=== PATIENT | female | born 1930 | race Caucasian/White ===

== ENCOUNTER → 2016-06-11 | Outpatient (CLI) | payer MEDICARE ==
[~2016-06-11] MED LIST: ASPI-504 PO; CALC-701 PO; HYDR-3702 PO; LETR2.5T5 PO; OMG1KC PO; SERT100T PO; ZOLP5TAB PO
[2016-06-11 14:45] LABS: MEAN CORPUSCULAR HEMOGLOBIN 30.7 PG (26.0-34.0); MEAN CORPUSCULAR HGB CONC 33.7 g/dL (31.0-37.0); MEAN CORPUSCULAR VOLUME 91 FL (80-100); PLATELET COUNT 150 10^3uL (150-450); WHITE BLOOD COUNT 7.41 10^3uL (4.0-11.0)
[2016-06-11 15:09] LABS: ANION GAP 15.7 MEQ/L (3-15); CALCULATED IONIZED CALCIUM 4.4 mg/dL (3.8-4.6); MAGNESIUM* 2.1 mg/dL (1.6-2.3); PHOSPHORUS 3.8 mg/dL (2.4-4.9); TOTAL PROTEIN 7.2 g/dL (6.4-8.5)
[2016-06-11 15:13] LABS: BAND NEUTROPHILS % 0 % (0-6); EOSINOPHILS % 4 % (0-4); LYMPHOCYTES # 1.8 #; MONOCYTES # 0.2 #; MONOCYTES % 3 % (3-11); RBC MORPH NORMAL (NORMAL); SEGMENTED NEUTROPHILS % 69 % (51-67); TOTAL CELLS COUNTED 100
== END ==
LOC: LAB 14:27
PROVIDERS: ATTEND Internal Medicine Hematology & Oncology
DX: C50.412 Malignant neoplasm of upper-outer quadrant of left female breast (principal)
CPT/HCPCS: 36415; 80053; 83615; 83735; 84100; 85007; 85027; 86300

== ENCOUNTER 2016-07-19 15:45 | Outpatient (RCR) | payer MEDICARE | END 2016-08-03 16:14 | disposition home or self-care (01) | LOC: PT 15:45 | PROVIDERS: ATTEND Family Medicine | DX: M25.561 Pain in right knee (principal); M17.11 Unilateral primary osteoarthritis, right knee; M25.511 Pain in right shoulder | CPT/HCPCS: 97110; 97112; 97116; 97140; 97162; G8978; G8979; G8980 ==

== ENCOUNTER → 2016-08-27 | Outpatient (CLI) | payer MEDICARE ==
[2016-08-27 15:09] LABS: MEAN CORPUSCULAR HGB CONC 32.9 g/dL (31.0-37.0); MEAN CORPUSCULAR VOLUME 91 FL (80-100); MEAN PLATELET VOLUME 10.1 FL (6.0-9.5); PLATELET COUNT 116 10^3uL (150-450); WHITE BLOOD COUNT 5.53 10^3uL (4.0-11.0)
[2016-08-27 15:24] LABS: BAND NEUTROPHILS % 0 % (0-6); LYMPHOCYTES # 2.2 #; SEGMENTED NEUTROPHILS % 52 % (51-67)
[2016-08-27 15:25] LABS: EOSINOPHILS % 0 % (0-4); MONOCYTES # 0.5 #; MONOCYTES % 9 % (3-11); RBC MORPH NORMAL (NORMAL); TOTAL CELLS COUNTED 100
[2016-08-27 15:37] LABS: ALBUMIN 4.1 g/dL (3.4-5.0); ANION GAP 12.7 MEQ/L (3-15); CALCULATED IONIZED CALCIUM 4.4 mg/dL (3.8-4.6); MAGNESIUM* 1.9 mg/dL (1.6-2.3); PHOSPHORUS 3.9 mg/dL (2.4-4.9); TOTAL PROTEIN 6.9 g/dL (6.4-8.5)
== END ==
LOC: LAB 14:56
PROVIDERS: ATTEND Internal Medicine Hematology & Oncology
DX: C50.412 Malignant neoplasm of upper-outer quadrant of left female breast (principal)
CPT/HCPCS: 36415; 80053; 83615; 83735; 84100; 85007; 85027; 86300

== ENCOUNTER → 2016-08-30 | Outpatient (CLI) | payer MEDICARE ==
--- NOTE | 2016-08-30 11:05 | Diagnostic Imaging Report ---
PROCEDURE: CT chest pelvis with and abdomen with and without contrast. TECHNIQUE: Multiple contiguous axial images were obtained through the chest, abdomen and pelvis after uneventful bolus administration of intravenous contrast. Precontrast acquisitions were acquired through the abdomen. INDICATION: Breast cancer. COMPARISON: 08/12/2015 Chest: Left breast nodule laterally measures 1.5 cm today previously 2 cm. No pathological appearing axillary lymph nodes. No abnormal tissue along the internal mammary chains. Some mild basilar atelectasis with no dominant or suspicious lung mass or pulmonary nodule. There is no hilar or mediastinal lymphadenopathy. Some tortuosity of the great vessels with no mediastinal mass. No pleural or pericardial effusion. There is coronary arterial atherosclerosis. There is no thoracic effusion or pneumothorax. Sclerotic lesion in the left sixth rib anterolaterally is a new finding. No other rib abnormality. There are degenerative changes to the thoracic endplates not grossly changed. Sclerosis in the left T12 pedicle and its right vertebral body is a new finding. There is new sclerosis in the right 10th thoracic transverse process. The development of bony metastatic disease is suspected and bone scanning may be of benefit. 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 No new or suspicious liver mass. Simple left renal cortical cyst is stable. The adrenals are negative. Spleen is negative. The pancreas is negative. There is no abdominal mesenteric or retroperitoneal lymphadenopathy. No abnormal adenopathy or soft tissue mass within the pelvis is found. New sclerotic bone disease in the pelvis is present. Conspicuous lesions involve the left acetabulum and supra-acetabulum, the bilateral innominate bone is lateral to the SI joints. Multiple lumbar vertebral bodies. There is also subtle sclerotic foci in the femoral neck on the left with some soft tissue calcifications and irregularity at the greater tuberosity posteriorly. IMPRESSION: 1. 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 2. We again showed no findings suggestive of soft tissue metastasis within the chest, abdomen or pelvis. Dictated by: Dictated on workstation # [id number]
== END ==
LOC: RAD 07:51
PROVIDERS: ATTEND Internal Medicine Hematology & Oncology
DX: C50.412 Malignant neoplasm of upper-outer quadrant of left female breast (principal); Z78.0 Asymptomatic menopausal state
CPT/HCPCS: 71260; 74178; Q9967

== ENCOUNTER → 2016-08-31 | Outpatient (CLI) | payer MEDICARE ==
--- NOTE | 2016-08-31 14:48 | Diagnostic Imaging Report ---
INDICATION: History of breast carcinoma. Complaining of arthritis pain, especially in the hips. Fell in May 2016. EXAMINATION: Bone scan on 08/31/2016. TECHNIQUE: After the uneventful administration of 26.2 mCi of technetium 99m MDP intravenously, subsequent imaging was performed in frontal and posterior projections of the whole body. FINDINGS: There are several foci of increased uptake noted within multiple left anterior ribs, similar to the previous examination. Posteriorly, several areas of increased uptake corresponding to the lower thoracic/upper lumbar spine are also unchanged. Uptake in the right frontoparietal calvarium is stable. There may be a small focus of increased uptake in the left parietal region towards the vertex which was not definitely seen previously. There is a new focus of increased uptake corresponding to the left hip region. This is seen predominantly within the intertrochanteric aspect of the proximal left femur, not seen on previous imaging. Given the history of prior fall, this could be due to contusion or fracture. Correlation is made to a CT of the abdomen and pelvis dated 08/30/2016. The irregularity noted within the left proximal femur likely corresponds to the areas of increased uptake seen on today's bone scan. Multiple osseous lesions described on the recent CT are not as well appreciated on the bone scan but likely too small for visualization at this time. See the separate CT report. There are several foci of increased uptake in the posterior gwen bilaterally. IMPRESSION: 1. New focus of increased uptake noted in the left intertrochanteric region corresponding with the abnormality seen on the recent CT and consistent with a fracture. 2. Questionable new focus of uptake in the left parietal calvarium towards the vertex with multiple other areas of increased uptake throughout the skeleton as described above, consistent with metastatic disease. 3. The report was called/faxed to nurse Michelle at the office of Dr. Walker Corado by jason@2:55 PM. Dictated by: Dictated on workstation # [id number]
== END ==
LOC: RAD 08:15
PROVIDERS: ATTEND Internal Medicine Hematology & Oncology
DX: Z78.0 Asymptomatic menopausal state (principal); C50.412 Malignant neoplasm of upper-outer quadrant of left female breast
CPT/HCPCS: 78306; A9503

== ENCOUNTER 2016-10-02 08:15 | Outpatient (RCR) | payer MEDICARE ==
--- NOTE | 2016-09-20 12:33 | PT/OT/ST INITIAL EVALUATION ---
Department of Health and Human Services Form Approved [facility] Care Financing Administration OMB No. [id number] PLAN OF CARE/ASSESSMENT FOR OUTPATIENT REHABILITATION (Complete for Initial Claims Only) 1. PATIENT'S NAME Lory Gillespie 2. ACC # [id number] 3. HICN [id number] 4. PROVIDER NO. [id number] 5. TYPE: PT 6. PRIOR HOSPITALIZATION NA 7. PRIMARY DX Healed left trochanteric fracture and left SI joint dysfunction. 8. SECONDARY DX NA 9. ONSET DATE May 2016 10. REFERRAL DATE 09/13/2016 11. SOC. DATE 09/17/2016 12. TIME OF EVAL 12. REFERRING PHYSICIAN Cesar Shah MD 13. CHARGES/UNITS Evaluation 91403 2 units of therapeutic exercise 37610 14. G CODES [id number] Goal S2736-CS 15. PRIOR LEVEL OF FUNCTION; PERTINENT HISTORY (Prior therapy results, reason for referral.) S: Prior to therapy the patient consented to today's evaluation and treatment. The patient is an 86-year-old female referred to physical therapy by Dr. Cesar Shah to address a healed left trochanteric fracture and left sacroiliac joint dysfunction. The patient fell 2 times back in May 2016 and was found in September 2016 to have a left trochanteric fracture at her left hip. The patient did undergo physical therapy throughout the healing process from June to July 2016 with good progress and improved function, as well as decreased pain. Currently the patient reports she is experiencing pain in the left low back, as well as continued pain into the left hip at times. Her primary complaint is not being able to lie in bed on her left side secondary to pain, as well as being unable to stay in bed for longer than 4 hours at a time secondary to being uncomfortable. Prior level of function: The patient lives alone in an apartment. She does ambulate with a single-point cane. The patient is still driving. She does go over to her daughter's house daily to watch their dog and that does involve her having to traverse stairs. Current level of function: The patient does note getting winded easily and does experience left hip and low back pain with ambulation of longer distances. Therapy History: As stated prior, the patient had physical therapy for the left hip pain issued from June to July 2016. Obstacles to delivery of care: The patient reports she does not want to be in physical therapy and do this all over again, however, once the evaluation has initiated, the patient is agreeable to treatment plan. Obstacles also include the patient already having physical therapy this year; therefore, mindfulness should be made to her therapy cap. Pain level: Current pain level is 4/10 with pain increasing to greater than 4/10 at times. The pain is described as a sharp pain in the low back localized to the left SI joint. The left hip around the greater trochanter is painful as well at time, especially when lying on it. Aggravating factors: The pain is aggravated by prolonged sitting, or pressure through the left hip, such as when lying on that side. Relieving factors: It is relieved by taking Aleve. Diagnostic testing: Include x-rays, which found the healed left trochanteric fracture. Past medical history: Includes the patient undergoing shots every 28 days and taking oral chemotherapy for breast cancer, the presence of cataracts, arthritis, gallbladder surgery and history of foot fracture. The patient also has a history of falling with her report of the most recent fall being back in May 2016. Current medications: The patient takes low dose aspirin and Aleve for pain. The patient is also taking chemotherapy medications which she did not provide the name for. No other medications were provided at this time. Activity level: Not provided. Personal health rating: The patient does report her overall health is good. Patient's Goal: The patient's goals includes improving her balance and reducing her left hip pain. 16. INITIAL ASSESSMENT/SAFETY PRECAUTIONS/MEDICAL COMPLICATIONS (Level of function at start of care. Be specific, use objective measures, list problems.) O: APPEARANCE, OBSERVATION AND GAIT: Observation of the patient's gait reveals the patient ambulating with the use of a single-point cane, foot-flat positioning on the left and significant Trendelenburg gait pattern noted. She does have decreased weightbearing on left lower extremity in comparison to the right. PALPATION: The patient has tenderness to palpation of the left greater trochanter, left IT band, as well as the left lumbar paraspinals are tight and tender to palpation. SPECIAL TESTS: The patient's left lower extremity is shorter in comparison to the right with the long sitting test, however, negative straight leg raise test for increased back pain. The patient scores a 33/80 on the Lower Extremity Functional Index scoring a 58.75% disability. RANGE OF MOTION/FLEXIBILITY: The patient is able to complete hip flexion greater than 100 degrees without pain on the right and left. Hamstring length is equal and minimally limited. The patient demonstrates increased right lumbar side bending in comparison to the left with pain reported at the left SI joint with right lumbar side bending. STRENGTH: Right hip flexion 4-/5, left 3+/5. Right hip abduction 4+/5, left 3-/5. Right knee flexion 4/5, left 4-/5. Knee extension 4/5, left 4/5. Ankle dorsiflexion right 4/5, left 4/5. TODAY'S TREATMENT: Today's treatment consisted of educating the patient on the findings of the evaluation and recommended treatment plan. We did discuss frequency of therapy and agreed upon 2 times a week secondary to patient already having a home exercise program from her prior therapy bought this year. The physical therapist initiated gentle hip range of motion exercises, lower trunk rotation to improve low back mobility, and added in hip strengthening and sitting. The patient did tolerate treatment with mild left hip pain. She was provided with an updated home exercise program. 17. INITIAL POC: (Specify procedures, modalities, short and termination clerk goals) A: The patient presents to physical therapy with history of a left trochanteric fracture, which is healed and left SI joint dysfunction secondary to impaired lumbar spine mobility, lower extremity flexibility, and weakness in the proximal hip musculature. PROGNOSIS: The patient has a fair prognosis with regular therapy attendance and compliance with her home exercise program. It should be noted that the patient is hesitant on continuing therapy services due to feeling that she is too old to be participating in these activities. FUNCTIONAL LIMITATIONS: As stated above, the patient scored a 33/80 on the Lower Extremity Functional Index with a 58.75% disability. [id number] INFORMED CONSENT: The diagnosis, prognosis, treatment plan, risks and expected outcomes were discussed with this patient and she is agreeable to today's established plan of care. SHORT TERM GOALS X2 WEEKS: 1. The patient will report independence and compliance with her home exercise program. 2. The patient will score greater than or equal to 19/28 on the Tinetti Balance Assessment to put her in a lower fall risk category. 3. The patient will ambulate with heel-toe gait pattern x250 feet using her single-point cane to decrease pressure up through her left lower extremity with gait. RN DIABETES GOALS X4 WEEKS: 1. The patient will improve bilateral hip flexion, hip abduction, and knee flexion to be a minimum of 4+/5 to improve hip stability and support to her low back. 2. The patient will report pain no greater than a 2/10 in her low back and left hip when lying on that side at night. 3. The patient will have a minimum of a 10% decrease on her Lower Extremity Functional Index score to demonstrate improved overall function. P: Plan to treat this patient 2 times a week for 4 weeks in order to address left hip, left SI joint pain, impaired hip weakness, and impaired gait and debility. The treatment will include manual therapy to decrease muscle tightness and joint stiffness. Therapeutic exercise with range of motion, stretching, strengthening, gait and balance training will be utilized as well. The patient was provided a home exercise program and this will be progressed as needed. Thank you for the referral of this patient. 18. FREQUENCY 2 times per week 19. DURATION 4 weeks 20. FUNCTIONAL LEVEL (End of claim period) 21. PHYSICIAN SIGNATURE ? ON FILE OR ENTER HERE: 22. DATE: I certify the need for these services furnished under this plan of care and if for partial hospitalization. 23. CERTIFICATION FROM THROUGH [facility]-700
== END 2016-10-29 12:48 | disposition home or self-care (01) ==
LOC: PT 08:15
PROVIDERS: ATTEND Orthopaedic Surgery
DX: S72.102D Unspecified trochanteric fracture of left femur, subsequent encounter for closed fracture with routine healing (principal); M46.1 Sacroiliitis, not elsewhere classified; W19.XXXD Unspecified fall, subsequent encounter; Z91.81 History of falling
CPT/HCPCS: 97110; 97112; 97161; G8978; G8979; G8980